=== PATIENT | female | born 1935 | race Caucasian/White ===

== ENCOUNTER 2021-11-29 19:00 | Inpatient (IN) | payer MEDICARE, MEDICAID ==
[~2021-11-29] VITALS: Ht 152.4 cm; Wt 71.2 kg
[2021-11-29] MEDS ORDERED: PREDNISONE 20MG TABLET PO STA (19:18)
[2021-11-29] MEDS ORDERED: ALBUTEROL 6.7GM HFA INHALER ORI ONE ×2 (19:30→22:15)
[2021-11-29 20:04] LABS: BASOPHILS % 0.6 % (0.0-2.0); EOSINOPHILS % 5.3 % (0.0-5.0); HEMATOCRIT. 37.9 % (36.0-48.0); LYMPHOCYTES % 31.5 % (20.0-50.0); MEAN CORPUSCULAR HEMOGLOBIN 30.9 pg (28.0-32.0); MEAN PLATELET VOLUME 7.3 fl (7.4-10.4); MONOCYTES % 9.3 % (2.0-8.0); NEUTROPHILS % 53.3 % (40.0-76.0); PLATELET 194 x1000/uL (130-400); RED BLOOD CELL COUNT 4.22 mill/uL (4.2-5.4); RED CELL DISTRIBUTION WIDTH 12.7 % (11.6-14.6)
[2021-11-29 20:10] LABS: CHLORIDE 104 mEq/L (98-107)
[2021-11-29] MEDS ORDERED: ALBUTEROL (0.083%) 2.5MG/3ML NEB HHN SCH (23:30)
[2021-11-30] MEDS ORDERED: TRAMADOL 50MG TABLET PO PRN (00:15)
[2021-11-30] MEDS ORDERED: ACETAMINOPHEN 325MG TABLET PO PRN (00:15)
[2021-11-30] MEDS ORDERED: ONDANSETRON HCL 4MG/2ML INJ IV PRN (00:15)
[2021-11-30] MEDS ORDERED: DOCUSATE SODIUM 100MG CAPSULE PO PRN (00:15)
[2021-11-30] MEDS ORDERED: NALOXONE HCL 0.4 MG/ML 1ML VIAL IV PRN (00:30)
[2021-11-30] MEDS: METHYLPREDNISOLONE SOD SUCC 40 MG/ML VIAL IV SCH ×4 (01:46→21:38)
[2021-11-30] MEDS: IPRATROPIUM/ALBUTEROL 0.5-3(2.5)MG/3ML NEB HHN SCH ×5 (01:48→20:54)
[2021-11-30 05:48] LABS: BASOPHILS % 0.2 % (0.0-2.0); EOSINOPHILS % 0.3 % (0.0-5.0); HEMATOCRIT. 38.3 % (36.0-48.0); LYMPHOCYTES % 11.3 % (20.0-50.0); MEAN CORPUSCULAR HEMOGLOBIN 30.7 pg (28.0-32.0); MEAN CORPUSCULAR VOLUME 90.1 fL (81.0-99.0); MEAN PLATELET VOLUME 7.7 fl (7.4-10.4); NEUTROPHILS % 87.2 % (40.0-76.0); PLATELET 192 x1000/uL (130-400); RED BLOOD CELL COUNT 4.25 mill/uL (4.2-5.4); RED CELL DISTRIBUTION WIDTH 12.7 % (11.6-14.6)
[2021-11-30 05:56] LABS: CHLORIDE 105 mEq/L (98-107)
[2021-11-30] MEDS: ENOXAPARIN 40MG/0.4ML SYR SUBCUT SCH (09:14)
[2021-11-30 13:20] VITALS: BP 153/71
[2021-11-30 13:39] VITALS: BP 153/71
[2021-11-30] MEDS ORDERED: LOSA50TA3 PO (15:13)
[2021-11-30] MEDS ORDERED: SIMV10TA2 PO (15:13)
[2021-11-30] MEDS ORDERED: DIGO125T MT (15:13)
[2021-11-30] MEDS ORDERED: APIX5TAB PO (15:13)
[2021-11-30] MEDS ORDERED: METO25TA6 PO (15:13)
[2021-11-30] MEDS ORDERED: AMLO5TAB4 PO (15:13)
[2021-11-30] MEDS ORDERED: METF-414 PO (15:13)
[2021-11-30 16:00] VITALS: BP 135/57
[2021-11-30 20:00] VITALS: BP 145/66
[2021-11-30] MEDS: GUAIFENESIN 200MG/10ML SUGAR FREE UDC PO PRN (21:41)
[2021-12-01] VITALS: BP 112/61
[2021-12-01] MEDS: IPRATROPIUM/ALBUTEROL 0.5-3(2.5)MG/3ML NEB HHN SCH ×6 (01:06→20:40)
[2021-12-01 04:00] VITALS: BP 116/57
[2021-12-01] MEDS: METHYLPREDNISOLONE SOD SUCC 40 MG/ML VIAL IV SCH (05:25)
[2021-12-01 08:00] VITALS: BP 134/70
[2021-12-01] MEDS: ENOXAPARIN 40MG/0.4ML SYR SUBCUT SCH (08:21)
[2021-12-01] MEDS ORDERED: ENOXAPARIN 30MG/0.3ML SYR SUBCUT NR (11:30)
[2021-12-01] MEDS ORDERED: CLONIDINE 0.1MG TABLET PO PRN (11:30)
[2021-12-01 11:47] VITALS: BP 150/89
[2021-12-01] MEDS: LOSARTAN POTASSIUM 50 MG TABLET PO SCH (13:17)
[2021-12-01 16:25] VITALS: BP 140/57
[2021-12-01 20:00] VITALS: BP 140/54
[2021-12-01] MEDS: METOPROLOL TARTRATE 25MG TABLET PO SCH (21:37)
[2021-12-02] VITALS: BP 125/71
[2021-12-02] MEDS: IPRATROPIUM/ALBUTEROL 0.5-3(2.5)MG/3ML NEB HHN SCH ×5 (00:58→20:49)
[2021-12-02 04:00] VITALS: BP 145/57
[2021-12-02 08:17] VITALS: BP 154/62
[2021-12-02] MEDS: ENOXAPARIN 80MG/0.8ML SYR SUBCUT SCH (09:14)
[2021-12-02] MEDS: METOPROLOL TARTRATE 25MG TABLET PO SCH ×2 (09:14→21:12)
[2021-12-02] MEDS: LOSARTAN POTASSIUM 50 MG TABLET PO SCH (09:14)
[2021-12-02] MEDS: METHYLPREDNISOLONE SOD SUCC 40 MG/ML VIAL IV SCH (09:17)
[2021-12-02 10:50] LABS: BASOPHILS % 0.1 % (0.0-2.0); EOSINOPHILS % 0.4 % (0.0-5.0); HEMATOCRIT. 39.2 % (36.0-48.0); HEMOGLOBIN. 12.9 g/dL (12.0-16.0); LYMPHOCYTES % 19.5 % (20.0-50.0); MEAN CORPUSCULAR HEMOGLOBIN 30.1 pg (28.0-32.0); MEAN CORPUSCULAR VOLUME 91.4 fL (81.0-99.0); MONOCYTES % 6.5 % (2.0-8.0); NEUTROPHILS % 73.5 % (40.0-76.0); PLATELET 174 x1000/uL (130-400); RED BLOOD CELL COUNT 4.29 mill/uL (4.2-5.4); RED CELL DISTRIBUTION WIDTH 12.9 % (11.6-14.6)
[2021-12-02 10:58] LABS: PROTHROMBIN TIME 10.8 sec (9.6-11.0)
[2021-12-02 11:03] LABS: CHLORIDE 103 mEq/L (98-107)
[2021-12-02] MEDS: BENZONATATE 100MG CAPSULE PO PRN (19:34)
[2021-12-02 20:00] VITALS: BP 123/63
[2021-12-03] VITALS: BP 155/61
[2021-12-03] MEDS: IPRATROPIUM/ALBUTEROL 0.5-3(2.5)MG/3ML NEB HHN SCH ×5 (01:54→20:47)
[2021-12-03 04:00] VITALS: BP 130/60
[2021-12-03 06:58] LABS: CHLORIDE 103 mEq/L (98-107)
[2021-12-03 07:03] LABS: BASOPHILS % 0.1 % (0.0-2.0); EOSINOPHILS % 0.3 % (0.0-5.0); HEMATOCRIT. 38.9 % (36.0-48.0); HEMOGLOBIN. 13.1 g/dL (12.0-16.0); LYMPHOCYTES % 19.5 % (20.0-50.0); MEAN CORPUSCULAR HEMOGLOBIN 30.4 pg (28.0-32.0); MEAN PLATELET VOLUME 7.9 fl (7.4-10.4); MONOCYTES % 8.5 % (2.0-8.0); NEUTROPHILS % 71.6 % (40.0-76.0); PLATELET 201 x1000/uL (130-400); RED BLOOD CELL COUNT 4.32 mill/uL (4.2-5.4); RED CELL DISTRIBUTION WIDTH 13.1 % (11.6-14.6)
[2021-12-03 08:00] VITALS: BP 116/61
[2021-12-03] MEDS ORDERED: MONT10TA21 PO (09:01)
[2021-12-03] MEDS: METHYLPREDNISOLONE SOD SUCC 40 MG/ML VIAL IV SCH (09:22)
[2021-12-03] MEDS: ENOXAPARIN 80MG/0.8ML SYR SUBCUT SCH (09:39)
[2021-12-03] MEDS: BENZONATATE 100MG CAPSULE PO PRN ×2 (09:39→19:22)
[2021-12-03] MEDS: METOPROLOL TARTRATE 25MG TABLET PO SCH (09:39)
[2021-12-03] MEDS: LOSARTAN POTASSIUM 50 MG TABLET PO SCH (09:39)
[2021-12-03] MEDS: GUAIFENESIN-DM 200MG-20MG/10ML UDC PO PRN (09:39)
[2021-12-03] MEDS: DIGOXIN 125MCG TABLET PO SCH (11:45)
[2021-12-03 12:00] VITALS: BP 101/44
[2021-12-03 16:00] VITALS: BP 104/48
[2021-12-03] MEDS: GUAIFENESIN 200MG/10ML SUGAR FREE UDC PO PRN (19:22)
[2021-12-03 20:00] VITALS: BP 129/61
[2021-12-03] MEDS ORDERED: LACTULOSE 20G/30ML UDC PO PRN (21:00)
[2021-12-04] MEDS: GUAIFENESIN 200MG/10ML SUGAR FREE UDC PO PRN (02:38)
[2021-12-04 04:00] VITALS: BP 145/60
[2021-12-04 07:26] LABS: BASOPHILS % 0.2 % (0.0-2.0); EOSINOPHILS % 0.4 % (0.0-5.0); HEMATOCRIT. 39.1 % (36.0-48.0); HEMOGLOBIN. 13.2 g/dL (12.0-16.0); LYMPHOCYTES % 24.4 % (20.0-50.0); MEAN CORPUSCULAR HEMOGLOBIN 30.7 pg (28.0-32.0); MEAN CORPUSCULAR VOLUME 91.2 fL (81.0-99.0); MONOCYTES % 9.4 % (2.0-8.0); NEUTROPHILS % 65.6 % (40.0-76.0); PLATELET 194 x1000/uL (130-400); RED BLOOD CELL COUNT 4.28 mill/uL (4.2-5.4)
[2021-12-04 07:35] LABS: CHLORIDE 101 mEq/L (98-107)
[2021-12-04 08:00] VITALS: BP 129/62
[2021-12-04] MEDS ORDERED: PREDNISONE 20MG TABLET PO SCH (09:00)
[2021-12-04] MEDS: DIGOXIN 125MCG TABLET PO SCH (09:00)
[2021-12-04] MEDS: LOSARTAN POTASSIUM 50 MG TABLET PO SCH (09:09)
[2021-12-04] MEDS: GUAIFENESIN-DM 200MG-20MG/10ML UDC PO PRN (09:09)
[2021-12-04] MEDS: ENOXAPARIN 80MG/0.8ML SYR SUBCUT SCH (09:10)
[2021-12-04] MEDS: BENZONATATE 100MG CAPSULE PO PRN (09:10)
[2021-12-04] MEDS ORDERED: DEXTL PO (12:09)
[2021-12-04] MEDS ORDERED: APIX2.5T MT (12:09)
[2021-12-04] MEDS ORDERED: MED4 MT (12:09)
[2021-12-04 14:38] VITALS: BP 130/70
== END 2021-12-04 15:50 | disposition home health service (06) | DRG 189 ==
LOC: ER 19:00 → MICUSO 23:30 → 6WST 11-30 13:23
PROVIDERS: ADMIT Family Medicine Adult Medicine; ATTEND Internal Medicine
DX: J96.00 Acute respiratory failure, unspecified whether with hypoxia or hypercapnia (principal); J44.1 Chronic obstructive pulmonary disease with (acute) exacerbation; L03.115 Cellulitis of right lower limb; D72.10 Eosinophilia, unspecified; E78.5 Hyperlipidemia, unspecified; I10 Essential (primary) hypertension; Z20.822 Contact with and (suspected) exposure to COVID-19; E11.9 Type 2 diabetes mellitus without complications; R00.1 Bradycardia, unspecified; L53.9 Erythematous condition, unspecified; F17.210 Nicotine dependence, cigarettes, uncomplicated; I48.0 Paroxysmal atrial fibrillation; T38.0X5A Adverse effect of glucocorticoids and synthetic analogues, initial encounter; Y92.89 Other specified places as the place of occurrence of the external cause; Z86.718 Personal history of other venous thrombosis and embolism; Z79.01 Long term (current) use of anticoagulants; Z82.49 Family history of ischemic heart disease and other diseases of the circulatory system
CPT/HCPCS: 36415; 71045; 80048; 80053; 80162; 83735; 83880; 84484; 85025; 85379; 87426; 93005; 93306; 93970; 94640; 99291; J1650; J2920; J7512

== ENCOUNTER 2022-12-27 12:03 | Emergency (ER) | payer MEDICARE, MEDICAID ==
[~2022-12-27] VITALS: Ht 157.5 cm; Wt 79.0 kg
[~2022-12-27 12:03] MED LIST: AMLO5TAB4 PO; APIX2.5T MT; DEXTL PO; DIGO125T MT; LOSA50TA3 PO; MED4 MT; METF-414 PO; MONT-46 PO; SIMV-341 PO
[2022-12-27 12:07] VITALS: BP 102/60
== END 2022-12-27 22:29 | disposition left against medical advice (07) ==
LOC: ER 14:26
DX: R07.89 Other chest pain (principal); Z53.21 Procedure and treatment not carried out due to patient leaving prior to being seen by health care provider
CPT/HCPCS: 93005; 99281